=== PATIENT | male | born 1995 | race Caucasian/White ===

== ENCOUNTER 2025-01-24 21:23 | Emergency (ER) | payer BC, SELFPAY ==
[2025-01-24 21:34] VITALS: BP 161/88
[2025-01-24 21:57] LABS: % Basophils 0.5 % (0-2); % Immature Granulocytes 0.2 % (0-0.5); % Lymphocytes 29.8 % (20.5-51.1); % Monocytes 9.5 % (1.7-9.3); Absolute Eosinophils 0.3 10^3/uL (0-0.7); Absolute Lymphocytes 1.9 10^3/uL (1.2-3.4); Absolute Monocytes 0.6 10^3/uL (0.1-0.6); Absolute Neutrophils 3.5 10^3/uL (1.4-6.5); Hematocrit 41.3 % (39.0-52.0); Hemoglobin 14.6 g/dL (13.0-18.0); Mean Corp Hgb Conc. 35.4 g/dL (33.0-37.0); Mean Corpuscular Hgb 30.5 pg (27.0-31.0); Mean Corpuscular Volume 86.4 fL (80.0-94.0); Mean Platelet Volume 9.7 fL (7.4-10.4); Nucleated Red Blood Cells % 0 % (-); Platelet Count 228 10^3/uL (130-400); Red Blood Cell Count 4.78 10^6/uL (4.70-6.10); Red Cell Dist. Width 11.7 % (11.5-14.5); White Blood Cell Count 6.3 10^3/uL (4.8-10.8)
[2025-01-24 22:13] LABS: ALT (SGPT) 40 U/L (0-50); AST (SGOT) 26 U/L (17-59); Albumin 4.7 g/dl (3.5-5.0); Alkaline Phosphatase 60 U/L (38-126); Blood Urea Nitrogen 18 mg/dl (9-20); Calcium 9.2 mg/dl (8.4-10.2); Carbon Dioxide 27 mmol/L (22-30); Chloride 109 mmol/L (98-107); Creatine Phosphokinase 166 U/L (55-170); Glucose 96 mg/dl (70-99); Potassium 4.1 mmol/L (3.5-5.1); Sodium 142 mmol/L (135-145); Total Bilirubin 0.6 mg/dl (0.2-1.3); Total Protein 7.3 g/dl (6.3-8.2); eGFR > 60.00
[2025-01-24 23:11] LABS: Urine Albumin Negative (Neg - Trace); Urine Bilirubin Negative (Negative); Urine Character Cloudy (Clear); Urine Color Yellow; Urine Glucose Negative (Negative); Urine Ketone Negative (Negative); Urine Leukocyte Negative (Negative); Urine Nitrite Negative (Negative); Urine Occult Blood Negative (Negative); Urine Specific Gravity 1.015 (<1.030); Urine Urobilinogen Negative (Neg - 1+)
--- NOTE | 2025-01-24 23:22 | ED.GENMED ---
History of Present Illness
General
Chief Complaint: Back Pain
Source: patient
Exam Limitations: none
Time Seen by Provider: 01/24/25 22:33
History of Present Illness
History of Present Illness:
29-year-old male presents for evaluation of onset of right lower back pain. This was preceded by numbness to the both legs as well as to both hands. He was feeling short of breath at times. There is no chest pain. In general he feels fatigued.
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 No bowel or bladder dysfunction. He does note his urine is darker than usual. No fevers. No recent travel or surgery. No exogenous hormonal use. No leg swelling. He denies chest
pain.
Phy Exam
Physical Exam
Physical Exam:
General: well appearing male, NAD
HEENT: nc/AT
Heart: RRR, no murmurs
Lungs: CTA bilaterally
Ext: no cyanosis or edema
MSK: no reproducible tenderness to lumbar spine. Good ROM b/l LE
Neuro: good strength bilateral LE, Negative straight leg raise bilaterally Normal gait
vascular: 2+DP pulse bilateral feet
SKin: warm, no rash
Course
Orders/Labs/Results
Orders:
Orders
01/24/25 21:41
Electrocardiogram (*1) Urgent
Reason for Study: Hypertension, Benign
Cardiology Consult: Unknown
01/24/25 21:42
EKG- Treatment ONCE
01/24/25 21:50
CPK [Creatine Phosphokinase] Urgent
Complete Blood Count/With Diff Urgent
Comprehensive Metabolic Panel Urgent
Lyme Progressive Urgent
Comment: ADD ON
01/24/25 22:57
Add On- LAB Urgent
Tests Added?: lyme progressive
01/24/25 23:04
Urinalysis Reflex To Culture Urgent
Date Specimen was Collected: 01/24/25
Time Specimen was Collected: 23:01
Abnormal Lab Results
01/24/25
21:50
Monocytes % 9.5 H %
(1.7-9.3)
Chloride 109 H mmol/L
(98-107)
01/24/25 21:50
01/24/25 21:50
Vital Signs
Initial and Last Documented VS:
Initial Vital Signs
Temp Pulse Resp BP Pulse Ox
98.4 F 78 20 161/88 100
01/24/25 21:34 01/24/25 21:34 01/24/25 21:34 01/24/25 21:34 01/24/25 21:34
Last Documented Vital Signs
Temp Pulse Resp BP Pulse Ox
98.4 F 78 20 161/88 100
01/24/25 21:34 01/24/25 21:34 01/24/25 21:34 01/24/25 21:34 01/24/25 23:29
MDM/Problems Addressed
Differential Diagnosis Includes:
Patient with vague diffuse complaints of numbness to both arms and legs fatigue short of breath back pain. No red flags cauda equina. He is neurologically intact and has normal gait. No bowel or bladder dysfunction. He was working in the heat
and noted darker colored urine. Question possible rhabdomyolysis however CPK is normal. Will add on Lyme titer. Chest x-ray pending to evaluate for shortness of breath however patient is low risk for PE given his age normal vital signs no recent
travel or surgery no signs suggestive of DVT. Is not on any hormone use. EKG shows normal sinus rhythm without ischemic changes. Do not suspect dissection.
*Pulse Oximetry
SaO2: 100
Oxygen Mode of Delivery: Room air
Patient hypoxic: no
*Critical Care Note
Total Time (30-74mins, 75-104mins- exclusive of procedures): Not Applicable
Update Note
Update Note:
Work appear unremarkable. UA negative CPK normal. Question viral illness versus Lyme versus dehydration. Patient expresses his desire to go home. No indication for admission
ED Attending Note
-
Portions of this chart may have been created with voice recognition software.� Occasional wrong word or��sound alike� substitutions may have occurred due to the inherent limitations of voice recognition software.
Discharge Plan
Departure
Patient Disposition: Home (Routine Discharge)
Date of Disposition: 01/25/25
Time of Disposition: 00:18
Patient with high blood pressure during this ER visit?: No
Discharge Problem:
Paresthesia
Prescriptions:
No Action
No Current Medications
0
Referrals:
NONE,* [Family Provider, Internal Medicine]
Activity Restrictions/Additional Instructions:
Stay hydrated. Rest. Turn if worsening symptoms otherwise follow-up with your doctor
Interventions
Interventions:
*Risk Screen - Suicide Last Done: 01/24/25 21:34
*General Assessment Last Done: 01/24/25 21:34
*Neglect/Abuse Screening Last Done: 01/24/25 21:34
*ED- Fall Risk Assessment Last Done: 01/24/25 21:34
*ED COVID-19 Vaccine History Last Done: 01/24/25 21:34
ED- Cardiac Assessment Last Done: 01/24/25 23:10
ED-Musculoskeletal Assessment Last Done: 01/24/25 23:10
ED- Pulmonary Assessment Last Done: 01/24/25 23:10
Discharge Date and Time
Print Language: RWANDAN
[2025-01-25 00:25] VITALS: BP 127/78
[2025-01-26 14:02] LABS: Lyme Antibody Screen, EIA Presump. Positive (Negative)
== END 2025-01-25 00:26 | disposition home or self-care (01) ==
LOC: EMR 21:23
PROVIDERS: Emergency Medicine; Physician Assistant; EMERGENCY PHYSICIAN Emergency Medicine
DX: R20.2 Paresthesia of skin (principal); M54.50 Low back pain, unspecified; R06.02 Shortness of breath; R20.0 Anesthesia of skin; R53.83 Other fatigue
CPT/HCPCS: 99283; 80053; 81003; 82550; 85025; 86617; 86618; 93005